=== PATIENT | female | born 1990 | race Caucasian/White ===

== ENCOUNTER 2024-02-26 21:02 | Inpatient (IN) ==
[2024-02-26 21:27] VITALS: BMI 27.4
[2024-02-26 21:29] LABS: BILIRUBIN,URINE NEGATIVE (NEGATIVE); BLOOD/HEMOGLOBIN,URINE NEGATIVE (NEGATIVE); GLUCOSE, URINE NEGATIVE (NEGATIVE); KETONES,URINE NEGATIVE (NEGATIVE); LEUKOCYTE ESTERASE ,URINE 3+ (NEGATIVE); NITRITES,URINE NEGATIVE (NEGATIVE); PROTEIN,URINE NEGATIVE (NEGATIVE); UROBILINOGEN,URINE NORMAL (NORMAL)
[2024-02-26 21:31] LABS: APPEARANCE,URINE CLEAR (CLEAR); COLOR,URINE YELLOW (YELLOW)
[2024-02-26 21:41] LABS: BACTERIA,URINE 1+ /HPF (NEGATIVE); RBC,URINE 0-2 /HPF (0-3); SQUAMOUS EPITHELIAL CELL,UR FEW /HPF (NEGATIVE); YEAST,URINE FEW /HPF (NEGATIVE)
[2024-02-26 21:41] LABS: AMNISURE ROM TEST NO MEMBRANES RUPTURE (NO RUPTURE)
[2024-02-26] MEDS: D5 1/2 NS 1,000 ML 1,000 ML IV SCH (22:00)
[2024-02-26] MEDS ORDERED: ZOFRAN INJ 4 MG VIAL IVP PRN (22:01)
[2024-02-26] MEDS ORDERED: REGLAN INJ 10 MG VIAL IVP PRN (22:01)
[2024-02-26] MEDS ORDERED: NUBAIN INJ 20 MG AMP IVP PRN (22:01)
[2024-02-26] MEDS ORDERED: PITOCIN IVP ONE (22:01)
[2024-02-26 22:11] LABS: BASOPHILS # (AUTO) 0.1 X10^3/uL (0.0-0.1); BASOPHILS % (AUTO) 0.7 % (0.2-1.0); EOSINOPHILS # (AUTO) 0.2 x10^3/uL (0.0-0.2); EOSINOPHILS % (AUTO) 1.4 % (0.9-2.9); HEMOGLOBIN 10.7 g/dL (12.0-16.0); LYMPHOCYTES # (AUTO) 3.1 X10^3/uL (1.3-2.9); LYMPHOCYTES % (AUTO) 18.5 % (21.0-51.0); MEAN CORPUSCULAR HGB CONC 33.4 g/dL (33.0-35.0); MEAN CORPUSCULAR VOLUME 89.8 fL (80.0-100.0); MEAN PLATELET VOLUME 8.7 fL (7.4-11.0); MONOCYTES # (AUTO) 1.1 x10^3/uL (0.3-0.8); MONOCYTES % (AUTO) 6.4 % (0.0-13.0); NEUTROPHILS # (AUTO) 12.3 x10^3/uL (2.2-4.8); PLATELET COUNT 283 X10^3/uL (150.0-450.0); RED BLOOD COUNT 3.57 X10^6/uL (3.5-5.4); RED CELL DISTRIBUTION WIDTH 14.9 % (11.6-16.5); WHITE BLOOD COUNT 16.8 X10^3/uL (3.6-10.0)
[2024-02-26 22:21] LABS: ALANINE AMINOTRANSFERASE 14 Units/L (12-78); ALBUMIN 2.8 g/dL (3.4-5.0); ALKALINE PHOSPHATASE 118 Units/L (46-116); ASPARTATE AMINO TRANSFERASE 11 Units/L (15-37); BLOOD UREA NITROGEN 3 mg/dL (7-18); CALCIUM 9.1 mg/dL (8.5-10.1); CARBON DIOXIDE 23.4 mmol/L (21-32); CHLORIDE 106 mmol/L (98-107); COR CA(FOR HYPOALB) 10.1 mg/dL (8.5-10.1); CREATININE 0.54 mg/dL (0.55-1.02); GLUCOSE 72 mg/dL (65-99); POTASSIUM 3.8 mmol/L (3.5-5.1); SODIUM 140 mmol/L (136-145); TOTAL PROTEIN 6.7 g/dL (6.4-8.2); eGFR NON BLACK RACES > 60 (>60)
--- NOTE | 2024-02-26 22:34 | DR.OB ---
OB QUICK NOTE Assessment/Plan (1) Active labor at term: Assessment/Plan: L&D 02/26/24 at 10:30pm S-No complaint except CTX. O-Afebrile,VSS FJB=715 with good LTV, +accel, no decel. CTX=q 1 1/2 to 2 min., moderate by palpation CVX=5cm/100%/0/VTX AROM with clear fluid. IUPC and FSE placed. A-IUP at 39 0/7 weeks in active labor P-Begin pitocin augmentation F/U labs Anticipate
[2024-02-26] MEDS: LR 1,000 ML IV 1,000 ML IV ONE (23:00)
[2024-02-26] MEDS ORDERED: D5 1/2 NS 1,000 ML 1,000 ML IV SCH (23:00)
[2024-02-26] MEDS ORDERED: PITOCIN ONE (23:02)
[2024-02-26] MEDS: OXYTOCIN 20 UNIT/1,000 ML-NS 20 UNIT/1,000 ML PLAST..BAG IV PRN (23:05)
[2024-02-26] MEDS: FENTANYL VIAL INJ 100 mcg ONE (23:47)
[2024-02-26] MEDS: NAROPIN EPIDURAL 0.2% 100 ML ONE (23:55)
[2024-02-27] MEDS ORDERED: LIDOCAINE 2%-EPI 1:200,000 ONE (00:04)
[2024-02-27] MEDS ORDERED: BETADINE SOLN ONE (01:32)
--- NOTE | 2024-02-27 04:28 | DR.OB ---
OB QUICK NOTE Assessment/Plan (1) Active labor at term: Assessment/Plan: L&D 02/27/24 at 4:25am Pitocin=8mu/min. S-No complaint except CTX. Pushing for 2 hours.A O-Afebrile,VSS UVQ=[id number] with minimal variability, occasional late decel. CTX=q 1 1/2 to 2 min., 55-65mmHg CVX=complete/0 station with caput. No progress after 2 hours pushing. A-IUP at 39 0/7 weeks with failure to progress P-To C/S
[2024-02-27] MEDS: NOZIN NASAL SANITIZER TP ONE (05:00)
[2024-02-27] MEDS: DILAUDID INJ ONE (05:07)
[2024-02-27] MEDS: OFIRMEV IV 1000 MG VIAL 1,000 MG/100 ML VIAL IV ONE (05:07)
[2024-02-27] MEDS: NS 100 ML IV 100 ML ONE (05:07)
[2024-02-27] MEDS: ZOFRAN INJ 4 MG VIAL ONE (05:07)
[2024-02-27] MEDS: TORADOL 30 MG VIAL ONE (05:07)
[2024-02-27] MEDS: ANCEF VIAL 1 GRAM ONE (05:07)
[2024-02-27] MEDS: PEPCID 20 MG VIAL ONE (05:07)
[2024-02-27] MEDS: KETAMINE 50 MG/5 ML-NACL SYRNG ONE (05:33)
[2024-02-27] MEDS: LR 1,000 ML IV 1,000 ML IV ONE (05:37)
[2024-02-27] MEDS: PITOCIN ONE (05:37)
[2024-02-27] MEDS: VERSED ONE (05:38)
[2024-02-27] MEDS: DIPRIVAN VIAL 20 ML ONE (05:47)
[2024-02-27] MEDS: ZEMURON 100 MG VIAL ONE (05:47)
[2024-02-27] MEDS ORDERED: BENADRYL INJ 50 MG VIAL IVP PRN ×2 (06:35→06:53)
[2024-02-27] MEDS ORDERED: ZOFRAN INJ 4 MG VIAL IVP PRN ×2 (06:35→06:53)
[2024-02-27] MEDS ORDERED: DILAUDID INJ IVP PRN (06:35)
[2024-02-27] MEDS ORDERED: PERCOCET TAB 5/325 MG PO PRN (06:53)
[2024-02-27] MEDS ORDERED: REGLAN INJ 10 MG VIAL IVP PRN (06:53)
[2024-02-27] MEDS ORDERED: ADACEL or BOOSTRIX TDaP VACCINE IM ONE (06:53)
[2024-02-27] MEDS ORDERED: NARCAN INJ IVP PRN (06:53)
[2024-02-27] MEDS: D5 1/2 NS 1,000 ML 1,000 ML with PITOCIN 20 UNITS IV SCH (09:34)
[2024-02-27] MEDS: PRENATAL PLUS PO SCH (10:30)
[2024-02-27] MEDS: TORADOL 30 MG VIAL IVP PRN (11:54)
[2024-02-28] MEDS: MYLICON TAB 80 MG CHEW PO PRN (03:06)
[2024-02-28 05:21] LABS: HEMATOCRIT 26.6 % (36.0-47.0)
[2024-02-28 05:29] LABS: HEMOGLOBIN 8.7 g/dL (12.0-16.0)
[2024-02-28] MEDS: ADACEL or BOOSTRIX TDaP VACCINE IM ONE (09:03)
[2024-02-28] MEDS: COLACE CAP 100 MG PO SCH (09:04)
[2024-02-28] MEDS ORDERED: DERMOPLAST PAIN RELIEF SPRAY TOP PRN (09:17)
[2024-02-28] MEDS: PERCOCET TAB 5/325 MG PO PRN (13:34)
[2024-02-28] MEDS: BACTROBAN TOPICAL OINT TOP SCH (16:18)
[2024-02-28] MEDS: FERROUS GLUCONATE PO SCH (17:37)
[2024-02-29] MEDS: MOTRIN TAB 800 MG PO PRN (00:21)
[2024-02-29 04:13] VITALS: RESP 18
[2024-02-29 08:17] VITALS: BP 123/72; PULSE 78; TEMP 98.1; O2SAT 97
== END 2024-02-29 09:00 | disposition home or self-care (01) | DRG 788 ==
LOC: ER 21:02 → LD 22:04 → MED/SURG 02-27 06:53
PROVIDERS: ADMIT Specialist; ATTEND Specialist